=== PATIENT | male | born 1965 | race Caucasian/White ===

== ENCOUNTER 2024-02-14 08:20 | Inpatient (IN) | payer MEDICAID ==
[~2024-02-14] VITALS: Ht 182.9 cm; Wt 72.7 kg
[2024-02-14] VITALS (14 sets, daily range): BP systolic 79–124; BP diastolic 57–70; PULSE 78–113; RESP 13–18; TEMP 97.9–99.2; O2SAT 96–99
[2024-02-14] MEDS ORDERED: pantoprazole 40 MG vial IV SCH (08:30)
[2024-02-14] MEDS: CefTRIAXone/D5W-Rocephin 1gm 50 ML IV ONE (08:51)
[2024-02-14] MEDS: pantoprazole 40 MG vial IV ONE (08:51)
[2024-02-14 09:01] LABS: APTT 26 SECONDS (22-32); INR 1.3 INR; PROTHROMBIN TIME 13.8 SECONDS (9.0-12.0)
[2024-02-14] MEDS: NORepinephrine 8mg/ 250ml NS 250 ML IV SCH (09:02)
[2024-02-14] MEDS: octreotide 100mcg/1 ml ampule IV STA (09:08)
[2024-02-14 09:10] LABS: BASOPHILS # (AUTO) 0.1 X10'3 (0-0.2); BASOPHILS % (AUTO) 1.4 % (0-1); EOSINOPHILS % (AUTO) 0.2 % (0-6); HEMATOCRIT 25.9 % (42.0-52.0); HEMOGLOBIN 8.5 g/dl (14.0-17.9); LYMPHOCYTES % (AUTO) 23.1 % (21-51); MEAN CORPUSCULAR HEMOGLOBIN 31.4 PG (27.0-31.0); MEAN CORPUSCULAR HGB CONC 32.8 g/dL (33.0-36.5); MEAN PLATELET VOLUME 8.8 FL (7.4-10.4); MONOCYTES # (AUTO) 0.8 X10'3 (0-0.9); MONOCYTES % (AUTO) 9.5 % (2-12); NEUTROPHILS # (AUTO) 5.8 X10'3 (1.8-7.7); NEUTROPHILS % (AUTO) 65.8 % (42-75); PLATELET COUNT 172 X10'3 (140-440); RED CELL DISTRIBUTION WIDTH 14.9 % (11.5-14.5); WHITE BLOOD COUNT 8.8 X10'3 (4.5-11.0)
[2024-02-14 10:14] LABS: ALANINE AMINOTRANSFERASE 57 U/L (12-78); ALBUMIN 2.9 G/DL (3.4-5.0); ALBUMIN/GLOBULIN RATIO 1.2 (1.1-1.5); ALKALINE PHOSPHATASE 28 IU/L (46-116); ANION GAP 20 (8-16); ASPARTATE AMINO TRANSFERASE 56 U/L (10-37); BILIRUBIN,TOTAL 0.5 MG/DL (0.1-1.0); BLOOD UREA NITROGEN 81 MG/DL (7-18); BUN/CREATININE RATIO 33.2 (10.0-20.0); CALCIUM 7.3 MG/DL (8.5-10.1); CHLORIDE 106 MMOL/L (99-107); CREATININE 2.44 MG/DL (0.60-1.10); GLUCOSE 189 MG/DL (70-104); POTASSIUM 4.6 MMOL/L (3.5-5.1); SODIUM 139 MMOL/L (135-145); TOTAL CARBON DIOXIDE 13.2 MMOL/L (24-32); TOTAL PROTEIN 5.3 G/DL (6.4-8.2); eCRCL 34 ML/MIN; eGFR 28 ML/MIN
[2024-02-14] MEDS: octreotide inj. 500 MCG in normal saline 100ml IV soln 97.5 ML IV SCH (10:42)
[2024-02-14] MEDS: pantoprazole 40MG/NS 100ML BAG 100 ML IV SCH (10:52)
[2024-02-14] MEDS ORDERED: haloperidol 5mg tablet PO PRN (11:10)
[2024-02-14] MEDS ORDERED: morphine 2 MG/ML inj. syringe IV PRN (11:10)
[2024-02-14] MEDS ORDERED: ondansetron/PF 4mg/2ml inj IV PRN (11:10)
[2024-02-14] MEDS ORDERED: diphenhydrAMINE 25mg capsule PO PRN (11:10)
[2024-02-14] MEDS ORDERED: bisacodyl 10mg suppository rectal RC PRN (11:10)
[2024-02-14] MEDS ORDERED: haloperidol lactate 5mg/ml inj IM PRN (11:10)
[2024-02-14] MEDS ORDERED: acetaminophen 650mg rectal suppository RC PRN (11:10)
[2024-02-14] MEDS ORDERED: HYDROcodone/acetaminophen 5mg/325mg tablet PO PRN (11:10)
[2024-02-14] MEDS ORDERED: metoclopramide 5 mg/ml inj IV PRN (11:10)
[2024-02-14] MEDS ORDERED: diphenhydrAMINE 50 mg/ml inj IV PRN (11:10)
[2024-02-14] MEDS ORDERED: ondansetron 4mg rapidly disintigrating tab PO PRN (11:10)
[2024-02-14] MEDS ORDERED: dextrose 50%-water 50ml dispensing syringe IV PRN (11:10)
[2024-02-14] MEDS ORDERED: mag hydrox/Alum hydrox/simeth 30ml oral suspension PO PRN (11:10)
[2024-02-14] MEDS ORDERED: acetaminophen 325mg tablet PO PRN ×2 (11:10)
[2024-02-14] MEDS ORDERED: magnesium hydroxide 30ml (MOM) UD suspension PO PRN (11:10)
[2024-02-14 11:36] LABS: ABG BASE EXCESS -11.6 mmol/L (-2.0-2.0); ABG HCO3 13.3 mmol/L (22.0-26.0); ABG OXYGEN SATURATION 95.9 % (94-97); ABG PCO2 (T) 26.9 mmHg (35.0-48.0); ABG PH (T) 7.312 (7.340-7.440); ABG PO2 (T) 94.8 mmHg (75.0-100.0); ALLEN'S TEST POSITIVE; FCOHb 0.3 % (0.0-3.9); FHHb 4.1 % (0.0-5.0); FMetHb 0.4 % (0.0-1.5); FO2Hb 95.2 % (94-97); MODE NASAL CANNULA; TOTAL HEMOGLOBIN 8.8 G/dl (14.0-17.9)
[2024-02-14 12:04] LABS: CREATINE KINASE 100 U/L (39-308); HEMOGLOBIN A1C 5.6 % (4.5-6.2); PHOSPHORUS 1.8 MG/DL (2.3-4.5); PRO BRAIN NATRIURETIC PEPTIDE 929 PG/ML (0-125); THYROID STIMULATING HORMONE 0.67 ulU/ml (0.34-4.50)
[2024-02-14] MEDS ORDERED: BACL10TA2 PO (12:38)
[2024-02-14] MEDS ORDERED: ATOR-2 PO (12:38)
[2024-02-14] MEDS ORDERED: TRAM50TA2 PO (12:38)
[2024-02-14] MEDS ORDERED: FENO160T30 PO (12:38)
[2024-02-14] MEDS ORDERED: APIX5TAB3 PO (12:38)
[2024-02-14] MEDS ORDERED: LOSA100T58 PO (12:38)
[2024-02-14] MEDS ORDERED: LEVE750T66 PO (12:38)
[2024-02-14] MEDS ORDERED: DICL100G59 TOP (12:38)
[2024-02-14] MEDS: thiamine 100mg/ml 2ml inj. IV SCH (13:00)
[2024-02-14] MEDS ORDERED: normal saline 1000ml 1,000 ML IVB ONE ×2 (14:50)
[2024-02-14] MEDS ORDERED: LIDOcaine 2% Viscous 15ml cup ONE (16:16)
[2024-02-14] MEDS ORDERED: fentaNYL/PF 50MCG/1 ML 2ML syringe ONE (16:32)
[2024-02-14] MEDS ORDERED: MIDAZolam 1 MG/ML 5ML VIAL ONE (16:32)
[2024-02-14] MEDS ORDERED: sodium phosphate inj. 30 MMOL in dextrose 5%-water 250 ML IV PRN (16:55)
[2024-02-14] MEDS ORDERED: sodium phosphate inj. 15 MMOL in dextrose 5%-water 250 ML IV PRN (16:55)
[2024-02-14] MEDS ORDERED: Neutra Phos packet PO PRN (16:55)
[2024-02-14] MEDS: normal saline 1000ml 1,000 ML IV SCH (18:13)
[2024-02-14] MEDS: ringers solution, lacted 1,000 ML IV ONE ×2 (18:17)
[2024-02-14 18:19] LABS: HEMATOCRIT 27.8 % (42.0-52.0); HEMOGLOBIN 9.3 g/dl (14.0-17.9); MEAN CORPUSCULAR HEMOGLOBIN 30.9 PG (27.0-31.0); MEAN CORPUSCULAR HGB CONC 33.4 g/dL (33.0-36.5); MEAN CORPUSCULAR VOLUME 92.4 FL (78-98); MEAN PLATELET VOLUME 8.3 FL (7.4-10.4); PLATELET COUNT 105 X10'3 (140-440); RED BLOOD COUNT 3.01 X10'6 (4.70-6.10); RED CELL DISTRIBUTION WIDTH 15.9 % (11.5-14.5); WHITE BLOOD COUNT 7.3 X10'3 (4.5-11.0)
[2024-02-14] MEDS: docusate sod 100mg capsule PO SCH (20:00)
[2024-02-14] MEDS ORDERED: temazepam 15mg capsule PO PRN (21:00)
[2024-02-14] MEDS: folic acid 1mg/0.2ml inj IV SCH (22:21)
[2024-02-14 22:48] LABS: HEMATOCRIT 23.4 % (42.0-52.0); HEMOGLOBIN 7.9 g/dl (14.0-17.9); MEAN CORPUSCULAR HEMOGLOBIN 30.8 PG (27.0-31.0); MEAN CORPUSCULAR HGB CONC 33.7 g/dL (33.0-36.5); MEAN CORPUSCULAR VOLUME 91.6 FL (78-98); MEAN PLATELET VOLUME 8.2 FL (7.4-10.4); PLATELET COUNT 97 X10'3 (140-440); RED BLOOD COUNT 2.56 X10'6 (4.70-6.10); RED CELL DISTRIBUTION WIDTH 15.9 % (11.5-14.5); WHITE BLOOD COUNT 6.6 X10'3 (4.5-11.0)
[2024-02-15] VITALS (7 sets, daily range): BP systolic 94–106; BP diastolic 42–68; PULSE 81–94; RESP 16–20; TEMP 98–98.7; O2SAT 96–98
[2024-02-15 04:27] LABS: BASOPHILS % (AUTO) 0.7 % (0-1); EOSINOPHILS # (AUTO) 0.1 X10'3 (0-0.9); EOSINOPHILS % (AUTO) 0.8 % (0-6); HEMOGLOBIN 8.8 g/dl (14.0-17.9); LYMPHOCYTES # (AUTO) 1.5 X10'3 (1.1-4.8); LYMPHOCYTES % (AUTO) 22.4 % (21-51); MEAN CORPUSCULAR HEMOGLOBIN 30.4 PG (27.0-31.0); MEAN CORPUSCULAR HGB CONC 33.8 g/dL (33.0-36.5); MEAN CORPUSCULAR VOLUME 89.9 FL (78-98); MEAN PLATELET VOLUME 8.1 FL (7.4-10.4); MONOCYTES # (AUTO) 0.9 X10'3 (0-0.9); MONOCYTES % (AUTO) 13.2 % (2-12); NEUTROPHILS # (AUTO) 4.2 X10'3 (1.8-7.7); NEUTROPHILS % (AUTO) 62.9 % (42-75); PLATELET COUNT 88 X10'3 (140-440); RED CELL DISTRIBUTION WIDTH 15.6 % (11.5-14.5); WHITE BLOOD COUNT 6.6 X10'3 (4.5-11.0)
[2024-02-15 04:41] LABS: ALANINE AMINOTRANSFERASE 39 U/L (12-78); ALBUMIN 2.6 G/DL (3.4-5.0); ALBUMIN/GLOBULIN RATIO 1.4 (1.1-1.5); ALKALINE PHOSPHATASE 21 IU/L (46-116); ANION GAP 7 (8-16); ASPARTATE AMINO TRANSFERASE 28 U/L (10-37); BILIRUBIN,TOTAL 0.8 MG/DL (0.1-1.0); BLOOD UREA NITROGEN 66 MG/DL (7-18); BUN/CREATININE RATIO 45.8 (10.0-20.0); CALCIUM 7.8 MG/DL (8.5-10.1); CHLORIDE 117 MMOL/L (99-107); CHOL/HDL RATIO 2.9 (0.00-4.99); CHOLESTEROL 81 MG/DL (0-200); CREATININE 1.44 MG/DL (0.60-1.10); GLUCOSE 155 MG/DL (70-104); HDL CHOLESTEROL 28 MG/DL (35-60); LDL CHOLESTEROL 36 MG/DL (50-100); POTASSIUM 4.2 MMOL/L (3.5-5.1); SODIUM 148 MMOL/L (135-145); TOTAL CARBON DIOXIDE 24.5 MMOL/L (24-32); TOTAL PROTEIN 4.4 G/DL (6.4-8.2); TRIGLYCERIDES 110 MG/DL (20-135); eCRCL 58 ML/MIN; eGFR 51 ML/MIN
[2024-02-15] MEDS: sodium phosphate inj. 15 MMOL in dextrose 5%-water 250 ML IV ONE (08:52)
[2024-02-15 09:49] LABS: HEMATOCRIT 25.8 % (42.0-52.0); HEMOGLOBIN 8.7 g/dl (14.0-17.9); MEAN CORPUSCULAR HEMOGLOBIN 30.2 PG (27.0-31.0); MEAN CORPUSCULAR HGB CONC 33.5 g/dL (33.0-36.5); MEAN CORPUSCULAR VOLUME 90.2 FL (78-98); PLATELET COUNT 85 X10'3 (140-440); RED BLOOD COUNT 2.86 X10'6 (4.70-6.10); WHITE BLOOD COUNT 5.7 X10'3 (4.5-11.0)
[2024-02-15 14:13] LABS: HEMATOCRIT 24.2 % (42.0-52.0); HEMOGLOBIN 8.2 g/dl (14.0-17.9); MEAN CORPUSCULAR HEMOGLOBIN 30.6 PG (27.0-31.0); MEAN CORPUSCULAR HGB CONC 33.9 g/dL (33.0-36.5); MEAN CORPUSCULAR VOLUME 90.2 FL (78-98); MEAN PLATELET VOLUME 8.1 FL (7.4-10.4); PLATELET COUNT 91 X10'3 (140-440); RED BLOOD COUNT 2.68 X10'6 (4.70-6.10); WHITE BLOOD COUNT 5.6 X10'3 (4.5-11.0)
[2024-02-15] MEDS ORDERED: PANT-47 PO (14:44)
[2024-02-15] MEDS ORDERED: MULT-1085 PO (14:44)
== END 2024-02-15 16:30 | disposition home or self-care (01) | DRG 243 ==
LOC: ER 08:20 → ED HOLD 11:17 → PCU 3S 19:40
PROVIDERS: ADMIT Family Medicine; ATTEND Family Medicine
PROC: 0DB78ZX Excision of Stomach, Pylorus, Via Natural or Artificial Opening Endoscopic, Diagnostic (ICD-10-PCS; principal; 2024-02-14)
PROC: 30233N1 Transfusion of Nonautologous Red Blood Cells into Peripheral Vein, Percutaneous Approach (ICD-10-PCS; 2024-02-14)
DX: K21.01 Gastro-esophageal reflux disease with esophagitis, with bleeding (principal); R57.1 Hypovolemic shock; K22.6 Gastro-esophageal laceration-hemorrhage syndrome; K22.11 Ulcer of esophagus with bleeding; E87.20 Acidosis, unspecified; K26.4 Chronic or unspecified duodenal ulcer with hemorrhage; N17.9 Acute kidney failure, unspecified; I95.9 Hypotension, unspecified; D62 Acute posthemorrhagic anemia; E83.39 Other disorders of phosphorus metabolism; K29.71 Gastritis, unspecified, with bleeding; G89.29 Other chronic pain; M54.9 Dorsalgia, unspecified; F10.20 Alcohol dependence, uncomplicated; K70.9 Alcoholic liver disease, unspecified; N18.9 Chronic kidney disease, unspecified; I25.10 Atherosclerotic heart disease of native coronary artery without angina pectoris; I48.91 Unspecified atrial fibrillation; K44.9 Diaphragmatic hernia without obstruction or gangrene; K57.90 Diverticulosis of intestine, part unspecified, without perforation or abscess without bleeding; Z79.899 Other long term (current) drug therapy; Z72.0 Tobacco use; Z79.01 Long term (current) use of anticoagulants; Z86.73 Personal history of transient ischemic attack (TIA), and cerebral infarction without residual deficits; Z95.1 Presence of aortocoronary bypass graft; Z83.3 Family history of diabetes mellitus
CPT/HCPCS: 36415; 36430; 36600; 43239; 71045; 74176; 80053; 80061; 82140; 82550; 82803; 83036; 83605; 83880; 84100; 84145; 84443; 84484; 85018; 85025; 85027; 85610; 85730; 86885; 86900; 86901; 86920; 87081; 93005; 99152; 99291; A4620; C9113; G0378; J0696; J2250; J2354; J3010; J3411; J3490; J7030; J7040; J7060; J7120; J7121; P9016